=== PATIENT | female | born 1965 | race Caucasian/White ===

== ENCOUNTER 2019-09-15 19:33 | Emergency (ER) | payer BC ==
[2019-09-15] MEDS ORDERED: Acetaminophen/oxyCODONE 325-10 MG Tab PO STA (20:00)
--- NOTE | 2019-09-15 20:03 | EDM.PDOC ---
ED HPI GENERAL MEDICAL PROBLEM - General Chief Complaint: Lower Extremity Injury/Pain Stated Complaint: HURT LEFT ANKLE Time Seen by Provider: 09/15/19 20:00 Source of Information: Reports: Patient History Limitations: Reports: No Limitations - History of Present Illness INITIAL COMMENTS - FREE TEXT/NARRATIVE: Patient arrives to the ED with c/o left ankle pain and right knee abrasion. Had some cocktails on the pontoon, got off wearing her flip flops and started heading up the flight of stairs to cabin, flip flop fell off and she twisted her left ankle, heard a crack. Took Tylenol for pain with no relief, unable to bear weight due to pain. Patient denies any other injuries, can move right knee without difficulty. Onset: Today, Sudden Duration: Hour(s): (2) Left Ankle Pain Score (Numeric/FACES): 8 - Related Data Allergies Allergy/AdvReac Type Severity Reaction Status Date / Time Sulfa (Sulfonamide Allergy Hives Verified 09/15/19 20:07 Antibiotics) sulfamethoxazole Allergy Anaphylactic Verified 09/15/19 20:07 [From Bactrim] Shock trimethoprim [From Bactrim] Allergy Anaphylactic Verified 09/15/19 20:07 Shock Home Meds: Home Meds Losartan [Cozaar] 50 mg PO DAILY 09/15/19 [History] Methotrexate 6 mg PO ASDIRECTED 09/15/19 [History] Sertraline HCl [Zoloft] 150 mg PO DAILY 09/15/19 [History] Review of Systems - Review of Systems Review Of Systems: Comprehensive ROS is negative, except as noted in HPI. ED EXAM, GENERAL - Physical Exam Exam: See Below Exam Limited By: No Limitations General Appearance: Alert, WD/WN, No Apparent Distress Throat/Mouth: Normal Inspection Head: Atraumatic Neck: Normal Inspection Respiratory/Chest: No Respiratory Distress Cardiovascular: Regular Rate, Rhythm Peripheral Pulses: 2+: Dorsalis Pedis (L), Dorsalis Pedis (R) Back Exam: Normal Inspection Extremities: Other (left lateral malleolar tenderness, swelling, cap refill distal pulses intact) Neurological: Alert, Oriented, CN II-XII Intact Psychiatric: Normal Affect, Normal Mood Skin Exam: Warm, Dry, Intact Lymphatic: No Adenopathy Course - Vital Signs Last Recorded V/S: Last Vital Signs Temp 37.3 C 09/15/19 20:09 Pulse 77 09/15/19 20:09 Resp 16 09/15/19 20:09 BP 122/58 L 09/15/19 20:09 Pulse Ox 98 09/15/19 20:09 Left ankle sprain CAM BOOT Crutches, weight bearing as tolerated. Tylenol 650 mg every 4 hours as needed. Percocet for severe pain. Narcotic safety and side effects discussed. RICE encouraged. Reasons to return to the ED discussed, patient agreeable and discharged in stable condition. - Orders/Labs/Meds Meds: Medications Discontinued Medications Generic Name Dose Route Start Last Admin Trade Name Sharon PRN Reason Stop Dose Admin Oxycodone/Acetaminophen 1 tab 09/15/19 20:00 09/15/19 20:27 Percocet 325-10 Mg PO 09/15/19 20:01 1 tab ONETIME STA Administration Departure - Departure Time of Disposition: 21:10 Disposition: Home, Self-Care 01 Condition: Good Clinical Impression: Left ankle sprain Qualifiers: Encounter type: initial encounter Involved ligament of ankle: unspecified ligament Qualified Code(s): S93.402A - Sprain of unspecified ligament of left ankle, initial encounter - Discharge Information Instructions: Ankle Sprain, Walking Boot, Adult, Crutch Use, Adult, [id number]-Rcve Referrals: PCP,None [Primary Care Provider] - Forms: ED Department Discharge Additional Instructions: Tylenol 650 mg every 4 hours as needed. Percocet as prescribed as needed, this is a narcotic, do not drive or drink alcohol if you take it. IT also contains Tylenol, do not exceed more than 4,000 mg of Tylenol from all sources in a 24 hour period. Wear boot until ortho clears you. Crutches as needed for pain control. Ice and elevate as much as possible. Take care and have a much better weekend. Sepsis Event Note (ED) - Focused Exam Vital Signs: Vital Signs Temp Pulse Resp BP Pulse Ox 09/15/19 20:09 37.3 C 77 16 122/58 L 98 09/15/19 20:02 37.3 C 77 16 122/58 L 98
--- NOTE | 2019-09-15 20:41 | CRLCR ---
Indication: Left lateral ankle pain Technique: Three views Comparison: None Findings: Bones: Alignment is normal. No fractures or bone lesions. Joint spaces: Unremarkable. Soft tissues: Anterolateral soft tissue swelling. Dictated by Jairo Beltran MD @ Sep 15 2019 8:38PM Signed by Dr. Jairo Beltran @ Sep 15 2019 8:41PM
== END 2019-09-15 21:51 | disposition home or self-care (01) ==
LOC: JP.ED 19:33
DX: S93.402A Sprain of unspecified ligament of left ankle, initial encounter (principal); Z88.2 Allergy status to sulfonamides; Z88.1 Allergy status to other antibiotic agents; Z79.899 Other long term (current) drug therapy; X50.9XXA Other and unspecified overexertion or strenuous movements or postures, initial encounter
CPT/HCPCS: 73610; 99283; A9270